=== PATIENT | male | born 1945 | race Caucasian/White ===

== ENCOUNTER 2016-05-20 11:55 | Emergency (ER) | payer MEDICARE, OTHER ==
[2016-05-20] MEDS ORDERED: Aspirin Low Dose CHEW TAB* 81 MG PO ONE (14:55)
[2016-05-20 15:27] LABS: Hematocrit 45 % (42-52); Mean Corpuscular HGB Conc 34 g/dl (31-36); Mean Corpuscular Hemoglobin 31 pg (27-31); Mean Corpuscular Volume 93 fL (80-94); Mean Platelet Volume 10 um3 (7.4-10.4); Red Cell Distribution Width 14 % (10.5-15); White Blood Count 6.4 10^3/ul (3.5-10.8)
--- NOTE | 2016-05-20 15:35 | RAD ---
Indication: Chest pain. Single frontal view of the chest performed at 1521 hours was reviewed. No prior study is available for comparison. No mediastinal shift is noted. Heart is of normal size and configuration. Lung rodriguez appear clear. IMPRESSION: NO ACTIVE CARDIOPULMONARY DISEASE IS NOTED.
[2016-05-20 15:39] LABS: Albumin 4.3 g/dL (3.2-5.2); BUN/Creatinine Ratio 19.6 (8-20); EGFR African American 98.1 (>60); EGFR Non-African American 76.3 (>60); Globulin 2.7 g/dL (2-4); Potassium 3.8 mmol/L (3.5-5.0); Total Bilirubin 1.6 mg/dL (0.2-1.0)
[2016-05-20 15:40] LABS: Troponin I 0.01 ng/mL (<0.04)
[2016-05-20] MEDS ORDERED: Lisinopril TAB* 10 MG PO ONE (15:49)
[2016-05-20] MEDS ORDERED: Nitroglycerin 2% OINT* 1 GM PAK TOPICAL ONE (15:49)
[2016-05-20 16:08] LABS: Ferritin 227.7 ng/mL (24-336)
--- NOTE | 2016-05-20 17:17 | CONSULT ---
Subjective Date of Service: 05/20/16 Interval History: 71 yo M with hx of HTN, BPH p/w chest pain. Mr. Mccracken reports he has had ongoing left upper chest pain for about 1 week. The pain has been constant, 3-4/ 10. No worse with exertion, no worse with deep breaths. Non-tender. Pain does not radiate, he has been taking Ibuprofen for his arthritis but hasn't noted any change in the pain. He has remained active and the past two days he has taken a 30 minute walk with his and also yesterday he was hauling logs out of the [place] with no change in his pain. No associated SOB, N/V. Due to the persistence of the pain he mentioned it to his and she insisted he come to the hospital for further evaluation. On arrival to the ED he was found to be HTN , he says he forgot to take his home medications today. Family History: Findings - F - [place], M - Alzheimers, B - DVT, S - HTN, CAD Social History: Findings - Lives home with , no tobacco use, active Past Medical History: Findings - HTN, BPH, DVT Review of Systems - Measurements Intake and Output: Intake and Output Last 24 Hours 05/18/16 05/19/16 05/20/16 05/21/16 06:59 06:59 06:59 06:59 Weight 95.254 kg - Review of Systems Constitutional Symptoms: Negative: Weakness, Fever Dermatology: Positive: Normal HEENT: Positive: Normal Eyes: Positive: Normal Thyroid: Positive: Normal Pulmonary: Positive: Normal Cardiology: Positive: Chest Pain Negative: Shortness of Breath, Palpitations Gastroenterology: Positive: Normal Genital - Urinary: Positive: Nocturia Musculoskeletal: Positive: Joint Pain Neurology: Positive: Normal Objective Vital Signs 05/20/16 05/20/16 05/20/16 12:02 14:47 15:00 Temperature 97.9 F Pulse Rate 68 63 Respiratory 16 18 Rate Blood Pressure 174/81 180/88 (mmHg) O2 Sat by Pulse 97 96 Oximetry 05/20/16 15:30 Temperature Pulse Rate 65 Respiratory 15 Rate Blood Pressure 182/93 (mmHg) O2 Sat by Pulse 97 Oximetry BP in the room during my exam was 149/75 Oxygen Devices in Use Now: Nasal Cannula - turned off while in room with O2 sats in high 90s Appearance: Elderly, M, appears younger than stated age, laying in bed in NAD Eyes: No Scleral Icterus Ears/Nose/Mouth/Throat: Mucous Membranes Moist Neck: NL Appearance and Movements; NL JVP Respiratory: Symmetrical Chest Expansion and Respiratory Effort, Clear to Auscultation Cardiovascular: NL Sounds; No Murmurs; No JVD, RRR Abdominal: NL Sounds; No Tenderness; No Distention Lymphatic: No Cervical Adenopathy Extremities: No Edema Skin: No Rash or Ulcers Neurological: Alert and Oriented x 3 Result Diagrams: 05/20/16 15:05 05/20/16 15:05 Assessment/Plan - Billing Atypical chest pain in a 71 yo M with hx of HTN and BPH. Chest pain seems very unlikely to be cardiac as it has been constant for a week and no worse with 30 minutes of walking or moving heavy logs. EKG and initial troponin are negative. Discussed options with the patient to be monitored overnight and get stress test in the AM or to scheduled stress test through [facility] as outpatient as long as 2nd troponin remained negative. He preferred the latter and based on his presentation I felt comfortable with that. His BP improved with administration of his home medication and nitro. He has a BP cuff at home and I told him he should check it again in the morning 2 hours after taking his oral medications. He will be contacted by [facility] to schedule a stress test. He should continue his daily ASA and BP medications as he is doing. Will check troponin at 1755 as ordered, if negative can discharge home with outpatient stress test, if positive will keep in [facility] for inpatient stress test. Discussed recommendations with Dr. Morse
[2016-05-20 19:24] VITALS: BP 121/75
--- NOTE | 2016-05-21 16:26 | ED ---
Elidia Lamas SooYoung, scribed for Chato Morse MD on 05/20/16 at 1530 . HPI Chest Pain - HPI Summary HPI Summary: A 71 y/o M presents to ED with c/o ongoing, mild L-sided CP onset past week. Pt and his spoke to Vane this AM who recommended they go to ED. Pt states the pain hasn't changed or worsened during the week, he even did physical labor yesterday--cutting trees, moving logs--and did not worsen. Moving, deep breathing doesn't aggravate the sx. He does say his breathing has been a bit "more labored" since he got the pain. Denies cough. Pt states he is a non-smoker , contradictory to chart, and daily minimal drinker. He notes having stress test about 2 years ago. Pt takes lisinopril daily for HTN, and daily aspirin, but is unsure if he did today. - History of Current Complaint Chief Complaint: EDChestPainROMI Time Seen by Provider: 05/20/16 14:55 Hx Obtained From: Patient, Family/Operator Specialist Communications - Onset/Duration: Started Weeks Ago - one week, Still Present Timing: Constant Initial Severity: Mild Current Severity: Mild Pain Intensity: 3 Pain Scale Used: 0-10 Numeric Aggravating Factor(s): Other: - neg: deep breaths, movement Associated Signs and Symptoms: Positive: Other: - breathing mildly more labored. Negative: Cough - Allergy/Home Medications Allergies/Adverse Reactions: Allergies Allergy/AdvReac Type Severity Reaction Status Date / Time No Known Allergies Allergy Verified 02/16/12 04:21 Home Medications: Home Medications Doxazosin TAB* [Cardura TAB*] 2 - 4 mg PO DAILY 05/20/16 [History Confirmed 08/01] Finasteride TAB* [Proscar TAB*] 5 mg PO DAILY 05/20/16 [History Confirmed ] Lisinopril/HCTZ 20/12.5(NF) [Zestoretic 20/12.5(NF)] 1 tab PO DAILY 05/20/16 [ History Confirmed 05/20/16] PMH/Surg Hx/FS Hx/Imm Hx Previously Healthy: No Endocrine/Hematology History: Reports: Hx Anticoagulant Therapy Denies: Hx Diabetes, Hx Thyroid Disease Cardiovascular History: Reports: Hx Hypertension Denies: Hx Pacemaker/ICD Respiratory History: Denies: Hx Asthma, Hx Chronic Obstructive Pulmonary Disease (COPD) GI History: Reports: Hx Gastroesophageal Reflux Disease History: Denies: Hx Renal Disease Neurological History: Denies: Hx Dementia, Hx Seizures Psychiatric History: Denies: Hx Substance Abuse Infectious Disease History: No Infectious Disease History: Denies: Hx Hepatitis, Hx Human Immunodeficiency Virus (HIV), Traveled Outside the [place] in Last 30 Days - Family History Known Family History: Positive: Cardiac Disease - father from [place] at 71 - Social History Occupation: Employed Full-time Lives: With Family Alcohol Use: Daily - 1 beer Hx Substance Use: No Substance Use Type: Reports: None Hx Tobacco Use: Yes Review of Systems Negative: Fever, Chills Negative: Erythema Negative: Sore Throat Positive: Chest Pain - mild ongoing for approx 1 week Positive: Other - breathing mildly more labored. Negative: Shortness Of Breath , Cough Negative: Abdominal Pain, Diarrhea, Nausea Negative: dysuria, hematuria Negative: Myalgia, Edema Negative: Rash Neurological: Other - neg: dizziness All Other Systems Reviewed And Are Negative: Yes Physical Exam - Summary Physical Exam Summary: Constitutional: Well-developed, Well-nourished, Alert. (-) Distressed Skin: Warm, Dry HENT: Normocephalic; Atraumatic Eyes: Conjunctiva normal Neck: Musculoskeletal ROM normal neck. (-) JVD, (-) Stridor, (-) Tracheal deviation Cardio: Rhythm regular, rate normal, Heart sounds normal; Intact distal pulses; The pedal pulses are 2+ and symmetric. Radial pulses are 2+ and symmetric. (-) Murmur Pulmonary/Chest wall: Effort normal. (-) Respiratory distress, (-) Wheezes, (-) Rales Abd: Soft, (-) Tenderness, (-) Distension, (-) Guarding, (-) Rebound Musculoskeletal: (-) Edema; NO REPRODUCIBLE CHEST PAIN Lymph: (-) Cervical adenopathy Neuro: Alert, Oriented x3 Psych: Mood and affect Normal Triage Information Reviewed: Yes Vital Signs On Initial Exam: Initial Vitals Temp Pulse Resp BP Pulse Ox 97.9 F 68 16 174/81 97 05/20/16 12:02 05/20/16 12:02 05/20/16 12:02 05/20/16 12:02 05/20/16 12:02 Vital Signs Reviewed: Yes Diagnostics - Vital Signs Vital Signs Temp Pulse Resp BP Pulse Ox 05/20/16 12:02 97.9 F 68 16 174/81 97 - Laboratory Result Diagrams: 05/20/16 15:05 05/20/16 15:05 Lab Statement: Any lab studies that have been ordered have been reviewed, and results considered in the medical decision making process. - Radiology CXR Xray Interpretation: No Acute Changes - IMPRESSION: no active cardiopulmonary dz Radiology Interpretation Completed By: Radiologist - EKG 1221 Cardiac Rate: NL - 63bpm EKG Rhythm: Sinus Rhythm EKG Interpretation: no STEMI Chest Pain Course/Dx - Course Course Of Treatment: MDM: A 71 y/o M presents with mild L-sided CP lasting for one week. Pt takes Lisinopril and aspirin. Pert PMHx: HTN. FHx: father of [place] at 70. Trop at 1505 is 0.01. CXR is negative. Spoke with Dr. Garcia hospitalist at 1615. Trop at 1540 is 0.01. Pt will be d/c to follow-up Dr. Martinez, cardiology in 2-3 days. Pt voiced understanding. - Diagnoses Provider Diagnoses: Chest pain, unspecified, Uncontrolled hypertension - Provider Notifications Discussed Care Of Patient With: 1615: Dr Salazar, hospitalist Instructed by Provider To: Admit As Inpatient Discharge - Discharge Plan Condition: Stable Disposition: HOME Referrals: Ozzy ENRIQUEZ,[facility]. [Primary Care Provider] - Don Martinez MD [Medical Doctor] - Additional Instructions: Follow up with Dr. Martinez within 2-3 days. Return to the emergency department for changing or worsening symptoms. The documentation as recorded by the Elidia brown SooYoung accurately reflects the service I personally performed and the decisions made by , Chato Morse MD.
== END 2016-05-20 19:24 | disposition home or self-care (01) ==
LOC: ED 11:55
DX: R07.9 Chest pain, unspecified (principal); I10 Essential (primary) hypertension
CPT/HCPCS: 36415; 71010; 80053; 82728; 83540; 83550; 83605; 84484; 85025; 93005; 99283; A9270-GY

== ENCOUNTER 2020-07-31 08:40 | Observation (INO) ==
[~2020-07-31 08:40] MED LIST: Buffered Lidocaine 1% SYRIN 1 ml INTRADERM ONE; Lactated Ringers 1000 ml BAG 1,000 ML IV SCH; ceFAZolin 2 GM PREMIX 2 GM/50 ML BAG ONE
[2020-07-31] MEDS ORDERED: Midazolam 2 mg/2 ml VIAL 1 mg/ml 2 ml VIAL (2 mg) ONE (09:21)
[2020-07-31] MEDS ORDERED: fentaNYL 100 mcg/2 ml 50 MCG/ML VIAL ONE (09:21)
[2020-07-31] MEDS ORDERED: Lidocaine 2% PF 5 ML VIAL ONE (09:24)
[2020-07-31] MEDS ORDERED: Ketamine HCL 50 mg/ml 10 ml VIAL (500 MG) ONE (09:25)
[2020-07-31] MEDS ORDERED: Propofol 10 MG/ML 20 ML BTL ONE (10:21)
[2020-07-31] MEDS ORDERED: Ropivacaine 5 MG/ML 20 ML VIAL 0.5% (100 MG) ONE (10:36)
[2020-07-31] MEDS ORDERED: Lidocaine 2% PF 10 ML AMP ONE (10:36)
[2020-07-31] MEDS ORDERED: Bupivacaine 0.5% SDV PF 30ML VIAL ONE (11:30)
[2020-07-31] MEDS ORDERED: HYDROmorphone 1 MG/1 ML SYRINGE IV PRN (11:51)
[2020-07-31] MEDS ORDERED: Ondansetron 4 mg VIAL 2 MG/ML 2 ml VIAL IV PRN ×2 (11:51→12:51)
[2020-07-31] MEDS ORDERED: Naloxone 0.4 mg VIAL 0.4 mg/ml 1 ml VIAL IV PRN (11:51)
[2020-07-31] MEDS ORDERED: fentaNYL 100 mcg/2 ml 50 MCG/ML VIAL IV PRN (11:51)
[2020-07-31] MEDS ORDERED: Ondansetron 4 mg VIAL 2 MG/ML 2 ml VIAL ONE (12:12)
[2020-07-31] MEDS ORDERED: Dexamethasone IV 4 MG/ML VIAL 1 ml VIAL ONE (12:12)
[2020-07-31] MEDS ORDERED: Magnesium Hydroxide LIQ 30 ML UDC PO PRN (12:51)
[2020-07-31] MEDS ORDERED: Ondansetron ODT 4 mg TAB 4 MG TAB PO PRN (12:51)
[2020-07-31] MEDS ORDERED: diPHENhydraMINE IV 50 MG/ML 1 ml VIAL (BENADRYL) IV PRN (12:51)
[2020-07-31] MEDS ORDERED: Lactulose 30 ml UDC PO PRN (12:51)
[2020-07-31] MEDS ORDERED: diPHENhydraMINE 25 mg TAB PO PRN (12:51)
[2020-07-31] MEDS ORDERED: Morphine 2 MG/ML SYRINGE IV PRN (12:51)
[2020-07-31] MEDS ORDERED: Lactated Ringers 1000 ml BAG 1,000 ML IV SCH (13:00)
[2020-07-31] MEDS: ceFAZolin 1 GM ADVAN 1 GM in NS 0.9% 50 ML 50 ML IVPB SCH (20:03)
[2020-07-31] MEDS: Magnesium Hydroxide LIQ 30 ML UDC PO SCH (21:54)
[2020-08-01] MEDS: ceFAZolin 1 GM ADVAN 1 GM in NS 0.9% 50 ML 50 ML IVPB SCH ×2 (05:16→12:07)
[2020-08-01 07:03] LABS: Hematocrit 33 % (42-52); Hemoglobin 11.5 g/dL (14.0-18.0); Mean Platelet Volume 9.2 fL (7.4-10.4); Platelet Count 121 10^3/uL (150-450)
[2020-08-01 07:10] LABS: BUN/Creatinine Ratio 20.5 (8-20); Calcium 8.7 mg/dL (8.6-10.3); EGFR African American 77.3 (>60); EGFR Non-African American 63.9 (>60); Potassium 3.9 mmol/L (3.5-5.0)
[2020-08-01] MEDS ORDERED: Vitamin THERAPEUTIC TAB PO SCH (09:00)
[2020-08-01] MEDS: Magnesium Hydroxide LIQ 30 ML UDC PO SCH (09:15)
[2020-08-01 12:07] VITALS: BP 130/50
== END 2020-08-01 14:10 | disposition home or self-care (01) ==
LOC: AA 08:40 → INTOOBSV 08:40 → SSU 15:14
PROVIDERS: ADMIT Orthopaedic Surgery Adult Reconstructive Orthopaedic Surgery; ATTEND Orthopaedic Surgery Adult Reconstructive Orthopaedic Surgery